=== PATIENT | male | born 1965 | race Hispanic/Latino ===

== ENCOUNTER 2019-12-13 09:29 | Inpatient (IN) | payer SELFPAY ==
[~2019-12-13] VITALS: Ht 162.6 cm; Wt 75.3 kg
[2019-12-13] VITALS (10 sets, daily range): BP systolic 133–155; BP diastolic 94–108
[2019-12-13] MEDS ORDERED: ASPIRIN 81 MG CHEW TAB PO ONE ×2 (09:45→12:00)
[2019-12-13 09:58] LABS: BASOPHILS # (AUTO) 0.1 (0.0-0.1); BASOPHILS % 0.4 % (0.0-1.0); EOSINOPHILS # (AUTO) 0.1 (0.0-0.4); EOSINOPHILS % 0.5 % (0.0-6.0); HEMATOCRIT 46.2 % (38.2-49.6); LYMPHOCYTES # (AUTO) 2.7 (1.0-3.2); LYMPHOCYTES % 21.9 % (18.0-39.1); MEAN CORPUSCULAR HEMOGLOBIN 27.4 pg (28-32); MEAN CORPUSCULAR HGB CONC 32.5 g/dL (31-35); MEAN CORPUSCULAR VOLUME 84.5 fL (81-99); MONOCYTES # (AUTO) 1.4 (0.2-0.8); MONOCYTES % 10.9 % (4.4-11.3); NEUTROPHILS # (AUTO) 8.1 (2.1-6.9); NEUTROPHILS % 64.9 % (38.7-80.0); PLATELET COUNT 511 x10e3/uL (140-360); RED BLOOD COUNT 5.47 x10e6/uL (4.3-5.7); RED CELL DISTRIBUTION WIDTH 13.3 % (11.7-14.4)
[2019-12-13 10:15] LABS: INR 0.95; PROTHROMBIN TIME 13.2 seconds (11.9-14.5)
[2019-12-13 10:31] LABS: ALANINE AMINOTRANSFERASE 75 IU/L (0-55); ALBUMIN 3.3 g/dL (3.5-5.0); ALBUMIN/GLOBULIN RATIO 0.6 (0.8-2.0); ALKALINE PHOSPHATASE 107 IU/L (40-150); ANION GAP 15.2 mmol/L (8-16); BLOOD UREA NITROGEN 10 mg/dL (7-26); BUN/CREATININE RATIO 13 (6-25); CALCIUM 9.4 mg/dL (8.4-10.2); CARBON DIOXIDE 24 mmol/L (22-29); CHLORIDE 105 mmol/L (98-107); CREATINE KINASE 43 IU/L (30-200); EST GLOMERULAR FILTRATION RATE > 60 ML/MIN (60-); GLUCOSE 102 mg/dL (74-118); POTASSIUM 4.2 mmol/L (3.5-5.1); SODIUM 140 mmol/L (136-145)
[2019-12-13] MEDS ORDERED: SODIUM CHLORIDE 0.9% 1000ML 1,000 ML IV STA (11:25)
[2019-12-13] MEDS ORDERED: ENOXAPARIN INJ 80 MG/0.8 ML SYR SC STA (11:35)
--- NOTE | 2019-12-13 11:38 | Diagnostic Imaging Report ---
EXAM: CT Chest WITH contrast- Pulmonary Embolism Protocol INDICATION: Shortness of breath, chest pain COMPARISON: None TECHNIQUE: Chest was scanned utilizing a multidetector helical scanner from the lung apex through the level of the diaphragm after administration of IV contrast. Thin section reconstructions were obtained with special concentration on the pulmonary arteries. Coronal and sagittal reformations were obtained. Pulmonary embolism protocol was performed. IV CONTRAST: 100 cc of Isovue 370 RADIATION DOSE: Total DLP: 410 mGy*cm Dose modulation, iterative reconstruction, and/or weight based adjustment of the mA/kV was utilized to reduce the radiation dose to as low as reasonably achievable. COMPLICATIONS: None FINDINGS: LINES/ TUBES: None. PULMONARY ARTERIES: Acute bilateral lobar pulmonary emboli involving lobar and segmental branches of all lobes of both lungs with partial extension into the left main pulmonary artery. The main pulmonary artery measures up to 2.6 cm in diameter. No right heart strain. LUNGS AND AIRWAYS: The central airways are patent. Bilateral multifocal upper lung and peripherally predominant consolidative opacities. Bibasilar dependent subsegmental atelectasis. PLEURA: The pleural spaces are clear. HEART AND MEDIASTINUM: The thyroid gland is normal. No supraclavicular or axillary lymphadenopathy. Prominent mediastinal lymph nodes do not meet size criteria for lymphadenopathy. The heart is not enlarged. No pericardial effusion. UPPER ABDOMEN: Diffuse hepatic steatosis. No acute findings in the upper abdomen. BONES: No acute osseous injury. No suspicious lytic or blastic lesions. SOFT TISSUES: Unremarkable. IMPRESSION: Acute bilateral lobar pulmonary emboli involving lobar and segmental branches of all lobes of both lungs with partial extension into the left main pulmonary artery. No right heart strain. Bilateral multifocal upper lung and peripherally predominant consolidative opacities can be seen in the setting of multifocal pneumonia (including viral etiologies) or alternatively pulmonary infarcts. Diffuse hepatic steatosis. The above findings were discussed with Dr. Bernal on 12/13/2019 11:20 AM, who responded indicating that the communication was understood. Signed by: Bhargav Nelson MD on 12/13/2019 11:34 AM
[2019-12-13] MEDS ORDERED: CEFTRIAXONE SOD 1 GM/NS 50 ML 50 ML IV ONE (11:45)
--- NOTE | 2019-12-13 12:09 | Emergency Department Note ---
History of Present Illnes History of Present Illness Chief Complaint: COVID PUI History of Present Illness This is a 54 year old male hief Complaint Comment POSITIVE FOR COVID. PT WITH SOB AND THINKS HE MAY HAVE COVID. ALSO CHEST PAIN NON RADIATING. ONSET FRIDAY AND GETTING WORSE. EYES RED. PT AAAOX4. AMBULATORY . Historian: Patient Arrival Mode: Car Onset (how long ago): day(s) (1) Location: chest Quality: dull Radiation: Denies non-radiation, Denies back, Denies neck, Denies extremity, Denies abdomen, Denies periumbilical, Denies flank, Denies proximal, Denies distal, Denies other Severity: moderate Onset quality: gradual Duration (how long): day(s) (1) Timing of current episode: constant Progression: unchanged Chronicity: new Context: Denies recent illness, Denies recent surgery, Denies recent immobilization, Denies recent travel, Denies trauma/injury, Denies new medications, Denies hx of DVT/PE, Denies non-compliance w/ medications, Denies other Relieving factors: none Exacerbating factors: none Associated symptoms: Denies denies other symptoms, Denies confusion, Denies chest pain, Denies cough, Denies diaphoresis, Denies fever/chills, Denies headaches, Denies loss of appetite, Denies malaise, Denies nausea/vomiting, Denies rash, Denies seizure, Denies shortness of breath, Denies syncope, Denies weakness, Denies other Treatments prior to arrival: none Past Medical/Family History Physician Review I have reviewed the patient's past medical and family history. Any updates have been documented here. Past Medical History Recent Fever: No Clinical Suspicion of Infectio: No New/Unexplained Change in Ment: No Past Medical History: None Past Surgical History: None Social History Smoking Cessation: Never Smoker Counseling Performed: No Alcohol Use: None Any Illegal Drug Use: No Physically hurt or threatened: No Other Any Pre-Existing Lines (PICC,: No Review of Systems Review of Systems Constitutional: Reports no symptoms EENTM: Reports no symptoms Cardiovascular: Reports as per HPI Respiratory: Reports as per HPI Gastrointestinal: Reports no symptoms Genitourinary: Reports no symptoms Musculoskeletal: Reports no symptoms Integumentary: Reports no symptoms Neurological: Reports no symptoms Psychological: Reports no symptoms Endocrine: Reports no symptoms Hematological/Lymphatic: Reports no symptoms Physical Exam Related Data Allergies: Coded Allergies: No Known Allergies (Unverified , 12/13/19) Triage Vital Signs Vital Signs Date Time Temp Pulse Resp B/P (MAP) Pulse Ox O2 Delivery O2 Flow Rate FiO2 12/13/19 09:39 98.7 100 20 167/113 99 Room Air Vital signs reviewed: Yes Physical Exam CONSTITUTIONAL Constitutional: Present well-developed, Present well-nourished HENT HENT: Present normocephalic, Present atraumatic, Present oropharynx clear/moist, Present nose normal HENT L/R: Present left ext ear normal, Present right ext ear normal EYES Eyes: Reports PERRL, Reports conjunctivae normal NECK Neck: Present ROM normal PULMONARY Pulmonary: Present effort normal, Present rhonchi CARDIOVASCULAR Cardiovascular: Present regular rhythm, Present heart sounds normal, Present capillary refill normal, Present normal rate GASTROINTESTINAL Abdominal: Present soft, Present nontender, Present bowel sounds normal GENITOURINARY Genitourinary: Present exam deferred SKIN Skin: Present warm, Present dry MUSCULOSKELETAL Musculoskeletal: Present ROM normal NEUROLOGICAL Neurological: Present alert, Present oriented x 3, Present no gross motor or sensory deficits PSYCHOLOGICAL Psychological: Present mood/affect normal, Present judgement normal Results Laboratory Result Diagram: 12/13/19 0950 12/13/19 0950 Laboratory Laboratory Tests Test 12/13/19 10:15 12/13/19 09:50 White Blood Count 12.46 x10e3/uL (4.8-10.8) Red Blood Count 5.47 x10e6/uL (4.3-5.7) Hemoglobin 15.0 g/dL (14.0-18.0) Hematocrit 46.2 % (38.2-49.6) Mean Corpuscular Volume 84.5 fL (81-99) Mean Corpuscular Hemoglobin 27.4 pg (28-32) Mean Corpuscular Hemoglobin Concent 32.5 g/dL (31-35) Red Cell Distribution Width 13.3 % (11.7-14.4) Platelet Count 511 x10e3/uL (140-360) Neutrophils (%) (Auto) 64.9 % (38.7-80.0) Lymphocytes (%) (Auto) 21.9 % (18.0-39.1) Monocytes (%) (Auto) 10.9 % (4.4-11.3) Eosinophils (%) (Auto) 0.5 % (0.0-6.0) Basophils (%) (Auto) 0.4 % (0.0-1.0) Neutrophils # (Auto) 8.1 (2.1-6.9) Lymphocytes # (Auto) 2.7 (1.0-3.2) Monocytes # (Auto) 1.4 (0.2-0.8) Eosinophils # (Auto) 0.1 (0.0-0.4) Basophils # (Auto) 0.1 (0.0-0.1) Absolute Immature Granulocyte (auto 0.17 x10e3/uL (0-0.1) Prothrombin Time 13.2 seconds (11.9-14.5) Prothromb Time International Ratio 0.95 Sodium Level 140 mmol/L (136-145) Potassium Level 4.2 mmol/L (3.5-5.1) Chloride Level 105 mmol/L (98-107) Carbon Dioxide Level 24 mmol/L (22-29) Anion Gap 15.2 mmol/L (8-16) Blood Urea Nitrogen 10 mg/dL (7-26) Creatinine 0.80 mg/dL (0.72-1.25) Estimat Glomerular Filtration Rate > 60 ML/MIN (60-) BUN/Creatinine Ratio 13 (6-25) Glucose Level 102 mg/dL (74-118) Calcium Level 9.4 mg/dL (8.4-10.2) Total Bilirubin 0.5 mg/dL (0.2-1.2) Aspartate Amino Transf (AST/SGOT) 25 IU/L (5-34) Alanine Aminotransferase (ALT/SGPT) 75 IU/L (0-55) Alkaline Phosphatase 107 IU/L (40-150) Creatine Kinase 43 IU/L (30-200) Creatine Kinase MB 0.50 ng/mL (0-5.0) Troponin I < 0.001 ng/mL (0-0.300) Total Protein 8.8 g/dL (6.5-8.1) Albumin 3.3 g/dL (3.5-5.0) Globulin 5.5 g/dL (2.3-3.5) Albumin/Globulin Ratio 0.6 (0.8-2.0) Imaging Imaging results reviewed: Yes Procedures 12 Lead ECG Interpretation ECG Interpretation : ECG: ECG 1 Product Management Analyst: Interpreted by ED physician Date: Dec 13, 2019 Time: 09:35 Rhythm: sinus rhythm Rate: normal BPM: 93 QRS axis: left ST segments normal: Yes T waves normal: Yes Critical Care Time Total Critical Care Time (min): 45 Critical care time exclusive o: separately billable procedures Critcal care necessary due to: other (PE) Critcal care time spent by me: develop tx plan w patient/surrogate, discussion w consultants, discussion w primary provider, evaluation patient response to tx, examination of patient, order/perform tx or interventions, order/review labo ratory studies, order/review radiographic studies, pulse oximetry, re-evaluation of patient condition Assessment & Plan Medical Decision Making MDM CAD PE Reassessment Reassessment BETTER Assessment & Plan Final Impression: (1) Pulmonary embolism (2) Chest pain Depart Disposition: ADMITTED Last Vital Signs Date Time Temp Pulse Resp B/P (MAP) Pulse Ox O2 Delivery O2 Flow Rate FiO2 12/13/19 10:03 89 21 152/98 97 Room Air 12/13/19 09:39 98.7 Medications in the ED Aspirin 81 mg PRN ONCE PO Last administered on 12/13/19at 11:57; Admin Dose 81 MG; Start 12/13/19 at 09:45; Stop 12/13/19 at 11:59; Status DC Sodium Chloride 1,000 ml @ 0 mls/hr Q0M STAT IV Last administered on 12/13/19at 11:57; Admin Dose 999 MLS/HR; Start 12/13/19 at 11:25; Stop 12/13/19 at 11:27; Status DC Enoxaparin Sodium 80 mg NOW STAT SC Last administered on 12/13/19at 11:57; Admin Dose 80 MG; Start 12/13/19 at 11:35; Stop 12/13/19 at 11:40; Status DC Enoxaparin Sodium 80 mg Q12HR SC ; Start 12/13/19 at 21:00; Stop 12/20/19 at 20:59 Ceftriaxone Sodium 50 ml @ 100 mls/hr ONCE ONCE IV Last administered on at 11:57; Admin Dose 100 MLS/HR; Start 12/13/19 at 11:45; Stop 12/13/19 at 12:14 Aspirin 81 mg PRN ONCE PO ; Start 12/13/19 at 12:00; Stop 12/13/19 at 12:01; Status UNV Ceftriaxone Sodium 50 ml @ 100 mls/hr Q24H IV ; Start 12/13/19 at 12:00; Stop 12/20/19 at 11:59; Status KALPESH MAO MD Dec 13, 2019 12:09
[2019-12-13] MEDS ORDERED: IOPAMIDOL 370 MG/ML 200 ML INFUS..BTL INJ ONE (12:47)
[2019-12-13] MEDS ORDERED: SODIUM CHLORIDE 0.9% 50ML 50 ML ONE (12:47)
[2019-12-13] MEDS ORDERED: ZOLPIDEM TARTRATE 5 MG TAB PO PRN (16:15)
[2019-12-13] MEDS: ASCORBIC ACID 500 MG TAB PO SCH (16:20)
[2019-12-13] MEDS: AZITHROMYCIN 500MG/NS 250 ML 250 ML IV SCH (16:44)
--- NOTE | 2019-12-13 18:14 | Consultation ---
DATE OF CONSULTATION: Pulmonary Critical Care consultation CHIEF COMPLAINT: Pain with inspiration for 2 days. HISTORY OF PRESENT ILLNESS: The patient is a 54-year-old man. He reports pain with inspiration for 2 days. He does not report any fever or cough. He came to the emergency department and was found to have pulmonary emboli. The patient still denies any dyspnea. He says his only symptom is pain. He said his was tested for COVID, but he is unsure of the result. He was also previously tested for COVID and was negative. PAST SURGICAL HISTORY: The patient denies any surgeries in the past. PAST MEDICAL HISTORY: 1. No prior history of pulmonary emboli. 2. No prior history of asthma. 3. No prior history of heart problems. SOCIAL HISTORY: The patient has never been a smoker. He is not a drinker. He denies any long recent trips. FAMILY HISTORY: Family is noncontributory. REVIEW OF SYSTEMS: The patient is afebrile. He has no headache. He is not having any neck pain. He does note some pain with inspiration. He has no cough. He has no abdominal pain. He has no nausea or vomiting. He has no leg edema. PHYSICAL EXAMINATION: VITAL SIGNS: The blood pressure is 156/78. The pulse is 89. Respiratory rate is 23 and the saturation is 97%. HEENT: Shows no facial swelling or erythema. LYMPHATIC: Shows no submandibular, cervical, or supraclavicular adenopathy. CARDIAC: Reveals regular rate and rhythm with normal S1 and S2. LUNGS: Auscultation of lungs reveals rhonchorous breath sounds bilaterally. There is no wheezing. ABDOMEN: Soft and nontender. There is no rebound or guarding. EXTREMITIES: Shows no leg edema or calf tenderness. There is no cyanosis or clubbing. SKIN: Shows no rashes. NEUROLOGICAL: Shows no focal abnormalities. LABORATORY DATA: White blood cell count is 12.4, hemoglobin is 15, and the platelet count is 511. The BUN to creatinine ratio is 10 to 0.8, and the other electrolytes are within normal limits. RADIOGRAPHIC DATA: Chest x-ray shows acute bilateral pulmonary emboli involving the lobar and segmental branches. There is also some multifocal peripheral dominant consolidative opacities suggestive of possible pneumonia. IMPRESSION: 1. Pulmonary emboli. 2. Viral pneumonia and COVID-19 infection. PLAN: 1. Continue Lovenox at 1 mg/kg twice daily. 2. The patient does not have any right heart strain on CT. 3. Echocardiogram to evaluate right heart function. 4. Assuming the patient has no right heart strain, he can safely be discharged home on oral Eliquis. He should be on Eliquis 10 mg twice a day for 7 days followed by Eliquis 5 mg a day twice a day for 3 to 6 months. 5. Await COVID test. MD VESTA Ramirez/MODL /[id number]
[2019-12-13 19:33] LABS: CREATINE KINASE MB 0.5 ng/mL (0-5.0)
[2019-12-13] MEDS: ENOXAPARIN INJ 80 MG/0.8 ML SYR SC SCH (20:32)
--- NOTE | 2019-12-13 20:35 | NUR ---
Pt is alert and orientedx4. Pt remain afebrile, on RA saturating at 94-98%. Pt was given nightly dose of lovenox as ordered and made aware of pending transition to different room. Pt is covid-. RR remains WNL. Breath sounds are diminished bilaterally. Pt denies any needs at this time. Attempted to give report x1 for room 289. Will call again.
--- NOTE | 2019-12-13 21:25 | NUR ---
Patient arrived to unit from ICU via wheelchair, respirations even and unlabored on room air, SR on telemetry, no s/s of distress at this time. Bed locked and in lowest position, side rails upx3, call light placed within reach. Patient instructed to call for assistance if needed, verbalized understanding. All safety measures in place.
[2019-12-14] VITALS (7 sets, daily range): BP systolic 130–158; BP diastolic 85–103
--- NOTE | 2019-12-14 | History and Physical ---
The patient was seen early this afternoon approximately 1:30 p.m. in the ICU, then transferred to the COVID Unit. HISTORY OF PRESENT ILLNESS: This is a 54-year-old male, who comes into the ED with complaints of chest pain ongoing for the last several days. The patient reports he noticed it two days ago with radiation to the left shoulder and arm. The patient denies any history of cardiac disease. On arrival to the emergency room, the patient had a stat CT of the chest and found to have a pulmonary embolism, likely the etiology of his chest pain. He reports that his does have coronavirus at home. He denies any cough, congestion or any fever. CT imaging consistent with multifocal ground-glass opacity concerning for underlying coronavirus. The patient was seen and evaluated at bedside on the medical floor, he is currently doing well with no other issues at this time. REVIEW OF SYSTEMS: Pertinent positive chest pain. The rest of 14-point review of systems are reviewed with the patient and negative. ALLERGIES: NO KNOWN DRUG ALLERGIES. HOME MEDICATIONS: None. PAST MEDICAL HISTORY: Reports none. PAST SURGICAL HISTORY: Reports none. FAMILY HISTORY: Hypertension and diabetes. SOCIAL HISTORY: No drugs, no alcohol, does not smoke. Good social support. PHYSICAL EXAMINATION: VITAL SIGNS: Temperature is 99.5, pulse 95, respiratory rate 22, blood pressure is 146/101, pulse ox 97% on room air. GENERAL: In no acute distress, alert and oriented x3. Cooperative on examination. HEENT: Head is normocephalic and atraumatic. Eyes; pupils are equal, round, and reactive to light bilaterally. Extraocular movements are intact bilaterally. NECK: Supple. Good range of motion throughout. Throat, no evidence of any erythema or exudates in the posterior pharynx. Has poor dentition. PULMONARY: Clear to auscultation bilaterally. No wheezing, rales, or rhonchi. No crackles appreciated. CARDIOVASCULAR: Positive S1, S2. No murmurs, rubs, or gallops appreciated. ABDOMEN: Soft, nondistended, nontender to palpation. Bowel sounds present. MUSCULOSKELETAL: Strength is 5/5 throughout. No evidence of any muscle deficits on examination. No weakness appreciated. NEUROLOGICAL: Cranial nerves II through XII grossly intact. No evidence of any neurological deficits on exam. SKIN: Intact. Warm to touch. Good cap refill. PSYCHIATRIC: Normal affect and mood. EXTREMITIES: No edema. Good range of motion throughout. LABORATORY FINDINGS: White count 12.4, hemoglobin 15, hematocrit 46, platelets of 511,000. Chemistry; sodium 140, potassium 4.2, chloride 105, bicarb 24, anion gap of 15, BUN 10, creatinine 0.8, glucose 102, calcium 9.4, total bilirubin 0.5, AST 25, ALT 75, alkaline phosphatase 107. Troponins were negative. Albumin 3.3. Serology, coronavirus pending. Microbiology, blood cultures are pending. IMAGING STUDIES: CT chest PE protocol shows acute bilateral lobar pulmonary embolism involving lobar and segmental branches of all lobes of both lungs with partial extension to the left main pulmonary artery. No right heart strain. Bilateral multifocal upper lung peripheral predominantly consolidative opacities can be seen in the setting of multifocal pneumonia or alternatively pulmonary infarcts. Diffuse hepatic steatosis. IMPRESSION: 1. Acute pulmonary embolism. 2. Concerns for COVID-19 pneumonia with viral pneumonia. PLAN: At this time, the patient is on full-dose anticoagulation with Lovenox 1 mg/kg b.i.d. He was initially sent to the ICU. I am not sure why, but he is now transferred to the COVID Unit. We will continue with anticoagulation, get Hematology consultation. Pulmonary has been consulted. 2D echo has been ordered. He will likely be converted to oral anticoagulation. I did consult with ID to evaluate for possible COVID due to the imaging studies. Await for pelvic testing. Restart home medications. Encourage ambulation. Full-dose anticoagulation for underlying PE and DVT prophylaxis. We will get lower extremity venous Doppler as well. MD ERICA aDo/MODL /[id number]
[2019-12-14 06:10] LABS: BASOPHILS # (AUTO) 0.1 (0.0-0.1); BASOPHILS % 0.6 % (0.0-1.0); EOSINOPHILS # (AUTO) 0.1 (0.0-0.4); EOSINOPHILS % 1.3 % (0.0-6.0); HEMATOCRIT 42.2 % (38.2-49.6); LYMPHOCYTES # (AUTO) 2.7 (1.0-3.2); LYMPHOCYTES % 26.5 % (18.0-39.1); MEAN CORPUSCULAR HEMOGLOBIN 29.1 pg (28-32); MEAN CORPUSCULAR HGB CONC 33.2 g/dL (31-35); MEAN CORPUSCULAR VOLUME 87.7 fL (81-99); MONOCYTES # (AUTO) 1.2 (0.2-0.8); MONOCYTES % 11.9 % (4.4-11.3); NEUTROPHILS # (AUTO) 5.8 (2.1-6.9); NEUTROPHILS % 58.3 % (38.7-80.0); PLATELET COUNT 432 x10e3/uL (140-360); RED BLOOD COUNT 4.81 x10e6/uL (4.3-5.7); RED CELL DISTRIBUTION WIDTH 14.3 % (11.7-14.4)
[2019-12-14 06:36] LABS: ALANINE AMINOTRANSFERASE 60 IU/L (0-55); ALBUMIN/GLOBULIN RATIO 0.6 (0.8-2.0); ALKALINE PHOSPHATASE 100 IU/L (40-150); ANION GAP 15.3 mmol/L (8-16); BLOOD UREA NITROGEN 10 mg/dL (7-26); BUN/CREATININE RATIO 12 (6-25); CARBON DIOXIDE 24 mmol/L (22-29); CHLORIDE 104 mmol/L (98-107); CREATININE, SERUM 0.84 mg/dL (0.72-1.25); EST GLOMERULAR FILTRATION RATE > 60 ML/MIN (60-); GLUCOSE 123 mg/dL (74-118); POTASSIUM 4.3 mmol/L (3.5-5.1); SODIUM 139 mmol/L (136-145)
--- NOTE | 2019-12-14 06:46 | NUR ---
Routine consult called to Dr. Santos's office.
[2019-12-14 07:10] LABS: CREATINE KINASE MB 0.3 ng/mL (0-5.0)
--- NOTE | 2019-12-14 08:16 | NUR ---
HEMATOLOGY/ONCOLOGY CONSULTATION REPORT REASON FOR CONSULTATION: Pulmonary Embolism HISTORY OF PRESENT ILLNESS: Mr. Pang is a 54-year-old male with past medical history of hypertension who initially presented to the emergency department with chest pain over the last several days. Patient had stat CT chest with PE protocol performed which revealed acute bilateral lobar pulmonary emboli involving lobar and segmental branches along with bilateral opa cities which could represent multifocal pneumonia. ension into the left main pulmonary artery. COVID19 PCR was not detected. He has been started on on Lovenox 1mg/kg q12h, Vitamin C, and IV antibiotics. Patient denies history of hematologic disorders or cancers. He denies history of previous blood clots or use of blood thinners. He denies recent travel, immobility, smoking, or use of hormone replacement therapy. Hematology/Oncology has been consulted to assist with management. Presently, patient is resting comfortably. He appears to be in NAD. He denies chest pain or dyspnea at this time. He denies swelling to BLE. ALLERGIES: NKDA PAST MEDICAL HISTORY: Hypertension PAST SURGICAL HISTORY: None FAMILY HISTORY: Hypertension and diabetes SOCIAL HISTORY: Denies history of tobacco use, alcohol use, or illicit drug use REVIEW OF SYSTEMS: 14 point ROS negative unless otherwise stated in the HPI. PHYSICAL EXAMINATION: VITAL SIGNS: Reviewed per EMR GENERAL: NAD HEENT: NC, AT; EOMI NECK: Supple PULMONARY: Decreased breath sounds bilaterally CARDIOVASCULAR: Regular rate, regular rhythm PULMONARY: Decreased breath sounds bilaterally ABDOMEN: Soft, NTND, bowel sounds x 4 MUSCULOSKELETAL: Moves all EXTREMITIES: No cyanosis, no edema NEUROLOGICAL: Awake, alert PSYCHIATRIC: Cooperative LABORATORY DATA: 12/14/2019 WBC: 10.02 Hgb: 14.0 Hct: 42.2 Plt: 432 Monocytes: 11.9% PT: 13.2 INR: 0.95 BUN: 10 Creatinine: 0.84 RADIOLOGY DATA: CT Chest with PE protocol: Acute bilateral lobar pulmonary emboli involving lobar and segmental branches of all lobes of both lungs with partial extension into the left main pulmonary artery. No right heart strain. Bilateral multifocal upper lung and peripherally predominant consolidative opacities can be seen in the setting of multifocal pneumonia (including viral etiologies) or alternatively pulmonary infarcts. Diffuse hepatic steatosis. ASSESSMENT/PLAN: Mr. Pang is a 54-year-old male with past medical history who initially presented to the emergency department with chest pain over the last several days. Patient had stat CT chest with PE protocol performed which revealed acute bilateral lobar pulmonary emboli involving lobar and segmental br anches along with bilateral opacities which could represent multifocal pneumonia. ension into the left main pulmonary artery. COVID19 PCR was not detected. He has been started on on Lovenox 1mg/kg q12h, Vitamin C, and IV antibiotics. Patient denies history of hematologic disorders or cancers. He denies history of previous blood clots or use of blood thinners. He denies recent travel, immobility, smoking, or use of hormone replacement therapy. Hematology/Oncology has been consulted to assist with management. 1. Pulmonary embolism: Uncertain etiology. COVID19 negative however will await ID recommendations as patient appears to have bilateral ground glass opacities concerning for coronavirus. Continue on Lovenox 1mg/kg q12h with plans to switch to oral anticoagulation, likely Eliquis, at the time of discharge. Recommend continuing on Lovenox for at least 24-48 hours due to extensive clot. Will await BLE venous doppler US and echocardiogram, CT chest with PE protocol revealed no right heart strain. Will obtain tumor markers as well and follow up results. If all workup negative, patient may benefit from thrombophilia panel which can be done in the outpatient setting. Monitor for now. 2. Multifocal PNA: COVID19 vs other etiology? COVID19 PCR negative. Leukocytosis resolved. Currently afebrile. Patient on IV antibiotics and Vit C. ID and Pulmonary consulted. 3. DVT proph: As per #1. Above plan discussed with Dr. Blaine Santos. Thank you for the consult. I will be available. Please call with questions.
[2019-12-14] MEDS: ENOXAPARIN INJ 80 MG/0.8 ML SYR SC SCH ×2 (09:18→21:21)
[2019-12-14] MEDS: ASCORBIC ACID 500 MG TAB PO SCH ×2 (09:18→17:16)
[2019-12-14] MEDS: CEFTRIAXONE SOD 1 GM/NS 50 ML 50 ML IV SCH (13:45)
--- NOTE | 2019-12-14 15:04 | NUR ---
GAVE PACKET OF INFORMATION WITH COMMUNITY [employer] FOR ASSISTANCE WITH LOW TO NO INCOME TO PATIENT. RESOURCES THAT PATIENT MAY BE ABLE TO FOLLOW UP UPON DISCHARGE. PT EDUCATED ON EACH RESOURCE AND UNDERSTANDING HOW TO FOLLOW UP TO SEE IF QUALIFIED FOR EACH RESOURCE.
--- NOTE | 2019-12-14 17:15 | NUR ---
his is a 54-year-old male, who comes into the ED with complaints of chest pain ongoing for the last several days. The patient reports he noticed it two days ago with radiation to the left shoulder and arm. The patient denies any history of cardiac disease. On arrival to the emergency room, the patient had a stat CT of the chest and found to have a pulmonary embolism, likely the etiology of his chest pain. He reports that his does have coronavirus at home. He denies any cough, congestion or any fever. CT imaging consistent with multifocal ground-glass opacity concerning for underlying coronavirus. The patient was seen and evaluated at bedside on the medical floor, he is currently doing well with no other issues at this time. REVIEW OF SYSTEMS: Pertinent positive chest pain. [id number]
[2019-12-14] MEDS: AZITHROMYCIN 500MG/NS 250 ML 250 ML IV SCH (17:16)
--- NOTE | 2019-12-14 19:00 | NUR ---
RECEIVED PATIENT IN BEDSIDE SHIFT REPORT. PATIENT RESTING IN BED AT THIS TIME. NO PAIN REPORTED. NO S&S OF DISTRESS NOTED. TELE MONITOR AND CONTINUOUS PULSE OX MONITOR ON. BED LOCKED IN LOWEST POSITION, SIDE RAILS UXP2, CALL LIGHT IN REACH.
--- NOTE | 2019-12-14 20:35 | Progress Note ---
DATE: SUBJECTIVE: Mr. Pang is doing well. There are no new complaints. PHYSICAL EXAMINATION: GENERAL: He is currently alert, oriented. VITAL SIGNS: Stable, afebrile. HEENT: He is not icteric. NECK: Supple. CHEST: Clear. COR: S1 and S2. ABDOMEN: Soft. ASSESSMENT AND PLAN: Acute pulmonary embolism, continue as ordered. We will follow . MD XOCHITL Bowen/MODL /[id number]
--- NOTE | 2019-12-14 20:35 | Progress Note ---
DATE: SUBJECTIVE: Mr. Pang is a 54-year-old male, who comes in to the emergency room with chest pain and not feeling well for a few days. The patient taken to the emergency room. He had CT scan, consistent with multifocal opacity. The patient was also diagnosed with pulmonary embolism. The patient is being admitted with pulmonary embolism. I was asked to see him. OBJECTIVE: GENERAL: When I saw him, he is currently alert and oriented. Does not present in acute distress. VITAL SIGNS: Stable, afebrile. I did see him yesterday. He was in the intensive care, but today he is doing better. IMPRESSION: Pulmonary embolism, maybe had history of COVID-19 a few weeks ago. Nothing seem to be done except treating the pulmonary embolism. Discussed with Medical Team. MD XOCHITL Bowen/OSORIO /[id number]
[2019-12-14] MEDS ORDERED: ACETAMINOPHEN 325 MG TAB PO PRN (21:00)
[2019-12-15] VITALS: BP 144/91
--- NOTE | 2019-12-15 02:07 | Progress Note ---
DATE: 12/14/2019 Medicine Progress Note The patient was seen and evaluated at 10:45 this morning with the nursing staff. SUBJECTIVE: The patient reports feeling a little better today with no complaints. Hematology was consulted. Several serologies were ordered. The patient is not short of breath on examination. PHYSICAL EXAMINATION: VITAL SIGNS: Temperature is a 100. T-max was a 100. During my evaluation, temperature was 98.7, pulse 89, respirations 18, blood pressure 136/101, pulse ox 97% on room air. GENERAL: Not in acute distress. Alert and oriented x3. Cooperative on examination. HEENT: Head; normocephalic, atraumatic. Eyes; pupils are equal, round, and reactive to light bilaterally. Extraocular movements intact bilaterally. Throat; no evidence of erythema or exudates in the posterior pharynx. Has poor dentition. NECK: Supple. Good range of motion. PULMONARY: Clear to auscultation bilaterally. No wheezing, no rales, no rhonchi, no crackles appreciated. CARDIOVASCULAR: Positive S1 and S2. No murmurs, rubs, or gallops appreciated. ABDOMEN: Soft, nondistended, and nontender to palpation. Bowel sounds present. MUSCULOSKELETAL: Strength is 5/5 throughout. No evidence of any muscle deficits on examination. No weakness appreciated. NEUROLOGIC: Cranial nerve II through XII grossly intact. No evidence of any neurological deficits on exam. SKIN: Intact. Warm to touch. Good cap refill. PSYCHIATRIC: Normal affect and mood. EXTREMITIES: No edema. Good range of motion throughout. LABORATORY DATA: Show white count 7, hemoglobin 14, hematocrit 42, platelets of 432. Coagulation; PT 13, INR 0.95. Chemistry; sodium 139, potassium 4.3, chloride 104, bicarb 24, anion gap of 15, BUN is 10, creatinine 0.84, glucose is 123. Troponins were all negative. Several tumor markers were ordered. SEROLOGIES: Coronavirus not detected. MICROBIOLOGY: Blood cultures, no growth to-date. IMAGING STUDIES: Lower extremity venous Doppler preliminary shows negative for DVT. IMPRESSION: 1. Acute pulmonary embolism. 2. Concerns for prior exposure of coronavirus disease-2019 pneumonia with viral pneumonia. PLAN: At this time, his coronavirus was found to be negative. The patient likely was exposed in the past. He is currently does not have coronavirus. Continue with full-dose anticoagulation. Pulmonary and ID is following. Hematology was consulted. Several tumor markers serologies were ordered. The patient will likely be converted to oral Eliquis and then plan to be discharged home soon. Venous Doppler of the lower extremities, found to be negative. Plan to discharge in the next 1 to 2 days as the patient is doing well. Cardiac enzymes were negative. MD ERICA Dao/DILANL /[id number]
[2019-12-15 04:00] VITALS: BP 125/90
[2019-12-15 07:37] VITALS: BP 127/94
--- NOTE | 2019-12-15 08:03 | NUR ---
HEMATOLOGY/ONCOLOGY PROGRESS REPORT REASON FOR CONSULTATION: Pulmonary Embolism HISTORY OF PRESENT ILLNESS: Patient is resting comfortably, no chest pain or dyspnea. REVIEW OF SYSTEMS: 14 point ROS negative unless otherwise stated in the HPI. PHYSICAL EXAMINATION: VITAL SIGNS: Reviewed per EMR GENERAL: NAD HEENT: NC, AT; EOMI NECK: Supple PULMONARY: Decreased breath sounds bilaterally CARDIOVASCULAR: Regular rate, regular rhythm PULMONARY: Decreased breath sounds bilaterally ABDOMEN: Soft, NTND, bowel sounds x 4 MUSCULOSKELETAL: Moves all EXTREMITIES: No cyanosis, no edema NEUROLOGICAL: Awake, alert PSYCHIATRIC: Cooperative LABORATORY DATA: 12/14/2019 WBC: 10.02 Hgb: 14.0 Hct: 42.2 Plt: 432 Monocytes: 11.9% PT: 13.2 INR: 0.95 BUN: 10 Creatinine: 0.84 AFP: 3.5 CEA: 1.8 CA 19-9: Pending PSA: 0.9 RADIOLOGY DATA: CT Chest with PE protocol: Acute bilateral lobar pulmonary emboli involving lobar and segmental branches of all lobes of both lungs with partial extension into the left main pulmonary artery. No right heart strain. Bilateral multifocal upper lung and peripherally predominant consolidative opacities can be seen in the setting of multifocal pneumonia (including viral etiologies) or alternatively pulmonary infarcts. Diffuse hepatic steatosis. ASSESSMENT/PLAN: Mr. Pang is a 54-year-old male with past medical history who initially presented to the emergency department with chest pain over the last several days. Patient had stat CT chest with PE protocol performed which revealed acute bilateral lobar pulmonary emboli involving lobar and segmental br anches along with bilateral opacities which could represent multifocal pneumonia. ension into the left main pulmonary artery. COVID19 PCR was not detected. He has been started on on Lovenox 1mg/kg q12h, Vitamin C, and IV antibiotics. Patient denies history of hematologic disorders or cancers. He denies history of previous blood clots or use of blood thinners. He denies recent travel, immobility, smoking, or use of hormone replacement therapy. Hematology/Oncology has been consulted to assist with management. 1. Pulmonary embolism: Uncertain etiology. COVID19 negative however patient may have had coronavirus a few weeks ago per ID. Continue on Lovenox 1mg/kg q12h with plans to switch to oral anticoagulation, Eliquis 10mg BID x 7 days then maintenance dose of Eliquis 5mg BID, at the time of discharge. BLE venous doppler US prelim negative for DVT, await final report. Echocardiogram with LVEF 50-55%. CT chest with PE protocol revealed no right heart strain. Tumor markers so far normal. If all workup negative, patient may benefit from thrombophilia panel which can be done in the outpatient setting. Monitor for now. 2. Multifocal PNA: COVID19 possible prior exposure per ID. COVID19 PCR negative. Leukocytosis resolved. Currently afebrile. Patient on IV antibiotics a nd Vit C. Monitor for now. 3. Thrombocytosis: Likely reactive. Counts improving. Monitor for now. 4. DVT proph: As per #1. 5. Dispo: Patient clear for discharge from HemOnc standpoint. Above plan discussed with Dr. Blaine Santos. Thank you for the consult. I will be available. Please call with questions.
[2019-12-15] MEDS: ENOXAPARIN INJ 80 MG/0.8 ML SYR SC SCH (08:38)
[2019-12-15] MEDS: ASCORBIC ACID 500 MG TAB PO SCH ×2 (08:38→16:50)
[2019-12-15 11:16] VITALS: BP 127/94
[2019-12-15 11:39] VITALS: BP 135/94
--- NOTE | 2019-12-15 14:10 | NUR ---
Patient's daughter ( Dona ) received the prescription for Eliquis and the 30-day trial card. Advised to get the prescription and come back so I can see the medication. Daughter states that she will milk pickup driver the medication and come back to the hospital.
--- NOTE | 2019-12-15 14:53 | Progress Note ---
DATE: 12/15/2019 I spoke with the patient at bedside with the nurse present throughout the entire conversation. We discussed with the patient about his anticoagulation therapy. I told him that we are going to give him Eliquis 10 mg twice a day for 7 days and then 5 mg twice daily thereafter, and he will get one month supply from us and we will provide him with a free Eliquis card. I discussed with him that it is very important to continue taking this medication despite given one month supply. The patient is to follow up very closely with the truck spotter. In fact, we provided the documentation and information to [facility] in order for him to make an appointment and possibly even get some of these medications for free. I also educated him about seeing the primary care doctor as soon as he gets discharged in the event he runs out after a month and he will need more prescriptions. I discussed with him the importance of continuing this medication for a minimum of 6 to 9 months, but also he will need to go to the truck spotter to determine when this stop date is. He verbalized understanding. I also spoke with the daughter, Dona, phone #[phone] about the importance of these medications. I told her that he will get one month supply from our facility with a free Eliquis card. He may be able to qualify for other resources as well. She understood and verbalized understanding. We also educated her about following up with the PCP, also make an appointment with [facility] and sign up with them, and potentially possibly even getting some of these medications for free. I even told them to even reach out to the pharmaceutical company possibly having a discount or even possibly getting them for free from the pharmaceutical company. On any rate, he will be provided the Eliquis card and the prescription, and I told he will need to go picking crew supervisor the prescription and verify with us that the prescription has been picked up and he can be discharged to home. The patient is currently doing well. He is alert, awake, and oriented. He is stable. His vitals are stable. He has no pain at this time. He does need to see the truck spotter as an outpatient because the etiology of his PE is unknown. I am not sure if it is provoked or not provoked. He may be other causes. His lower extremity venous Doppler was found to be negative for any DVT. The patient verbalized understanding at bedside and when I spoke to Dona, she also verbalized understanding and agrees to plan of care. The patient will likely be discharged home later today. Once again, daughter and the patient verbalized understanding and agrees to plan of care. MD ERICA Dao/OSORIO /[id number]
[2019-12-15 15:25] VITALS: BP 142/97
[2019-12-15] MEDS: CEFTRIAXONE SOD 1 GM/NS 50 ML 50 ML IV SCH (15:33)
--- NOTE | 2019-12-15 16:31 | NUR ---
CALL TO PT'S ROOM TO DISCUSS ASSISTANCE W EL[place] AFTER FREE 1 MO SUPPLY GIVEN. PT STATES HE IS NOT A CITIZEN. CM REVIEWED GOLD CARD CRITERIA. INSTRUCTED PT THE APPLICATION IS INCLUDED IN THE RESOURCE PACKET GIVEN BY THE . STATES HE HAS THE PACKET AND WILL HAVE HIS DTR REVIEW THE MATERIAL. STATES HIS DTR HAD GONE TO THE PHARMACY. CM REITERATED THE IMPORTANCE OF CONTINUING TO TAKE HIS ELIQUIS ONCE HIS 30 DAY SUPPLY RAN OUT. PT VERBALIZED UNDERSTANDING. STATES HE WILL BE SURE TO CONT HIS MEDS. [facility] TOLD HIM HE WILL NEED TO TAKE ELIQUIS FOR 6-9MOS. GAVE COPY OF [facility] [employer] CARD CATIE AGAIN.
[2019-12-15] MEDS: AZITHROMYCIN 500MG/NS 250 ML 250 ML IV SCH (16:55)
--- NOTE | 2019-12-15 17:55 | NUR ---
Education given regarding the importance of taking Eliquis as ordered. Reinforced teaching regarding the importance to take Anticoagulant (Eliquis) prescribed by Dr. Thompson. Reinforced teaching regarding follow-up appointment with health type technician and PCP in 1 week. Patient is educated about about the importance to getting to sign up for resources provided by the case management manager so he can acquire a different anticoagulant after prescription runs out. Verbalized understanding.
[2019-12-15] MEDS ORDERED: APIXABAN 5 MG TABLET PO SCH (18:00)
--- NOTE | 2019-12-15 18:00 | NUR ---
Given eliquis 10 mg, PO x one dose per ordered.
--- NOTE | 2019-12-15 18:08 | NUR ---
PIV to left AC discontinued, catheter tip intact, no bleeding noted. Discharge packet provided with the form for [facility] for healthcare and medication assistance. Transported patient via wheelchair to private vehicle. daughter Dona is present and reinforced teaching given to the patient. Verbalized understanding.
--- NOTE | 2019-12-15 19:39 | Progress Note ---
DATE: SUBJECTIVE: Poly is doing well. There is no new complaint. OBJECTIVE: GENERAL: The patient is alert. VITAL SIGNS: Stable, afebrile. HEENT: He is not icteric. NECK: Supple. CHEST: Clear. IMPRESSION: Pulmonary embolism, the patient is stable from Infectious Disease point of view, being discharged home. COVID-19 old infection, no need for treatment. MD XOCHITL Bowen/MODL /[id number]
--- NOTE | 2019-12-16 05:36 | Discharge Summary ---
FINAL DISCHARGE DIAGNOSES: 1. Acute pulmonary embolism. 2. Coronavirus disease-19 pneumonia exposure in the past, now asymptomatic. 3. Atypical chest pain. CONSULTANTS: ID, Pulmonary, Hematology. PHYSICAL EXAMINATION: VITAL SIGNS: Temperature was 98.3, pulse 99, respiratory rate is 18, blood pressure was 135/94, pulse ox 96% on room air. LABORATORY FINDINGS: White count was 10, hemoglobin 14, hematocrit 42, platelets of 432. Coagulation; PT 13, INR 0.95. Chemistry; sodium 139, potassium 4.3, chloride 104, bicarb 24, anion gap of 15, BUN is 10, creatinine 0.84, glucose 123, calcium is 9, AST is 25, ALT was 60, alkaline phosphatase is 100. Troponins were all negative. Albumin was 3. Alpha-fetoprotein 3.5, CEA antigen 1.8. PSA was 0.9. CA 19-9 antigen pending. Serology; coronavirus was not detected. Microbiology; blood cultures were no growth to date, greater than 48 hours. IMAGING STUDIES: CT of the chest shows acute bilateral lobar pulmonary emboli involving lobar and segmental branches of all lobes of both lungs with partial extension into the left main artery. No right heart strain noted. Bilateral multifocal upper lung and peripherally predominant consolidative opacity can be seen in the setting of multifocal pneumonia. Diffuse hepatic steatosis. HOSPITAL COURSE: This is a 54-year-old male. He came into the ED with complaints of underlying chest pain needing further evaluation and management. CTA of the chest showed extensive bilateral pulmonary embolism on imaging studies, prompting full-dose anticoagulation with Lovenox and was sent to the ICU initially. Of note, Pulmonary, ID, and Hematology were consulted respectively. Pulmonary and ID were consulted as the CTA was consistent with ground-glass opacity, concerning for underlying COVID-19. His COVID-19 was found to be negative. In fact, the patient was asymptomatic, normal white count. He was afebrile, had no cough or congestion. There is no further workup needed by ID. As per Pulmonary, 2D echo was performed, showed no evidence of any right heart strain. Imaging study including CT showed no evidence of any right heart strain. The patient maintained on full-dose anticoagulation with Lovenox 1 mg/kg b.i.d. with much improvement. Of note, the patient was ambulating with no evidence of any shortness of breath. His chest pain was resolved. His cardiac enzymes were negative. An EKG showed normal sinus rhythm. Hematology was consulted. The patient has serology workup performed. There is still some serologies pending in which the patient was advised to follow up with a veneer taping machine offbearer as an outpatient. The current serologies ordered were found to be within normal range. The patient was cleared for discharge by Hematology on Eliquis 10 mg p.o. b.i.d. x7 days, then 5 mg p.o. b.i.d. and he will need this for several months. I had a long discussion with the patient at bedside including his daughter on the phone and I talked with them about the importance of anticoagulation. I have discussed the risks and benefits involved in taking oral anticoagulation especially with taking Eliquis on discharge. I talked to them about the event of any bleeding, it could be rectal bleeding or any sort of bleeding, I have discussed with him to please come to the hospital for further evaluation and management. I did provide the family and the patient a free Eliquis card and a prescription, and which they will bean picker machine operator from [place] and confirm with the nurse that they were able to pick it up for free which will give them one month supply. I advised them to urgently please call [facility] to make an appointment for further management and care and also some resources in terms of cost and also make an appointment with Hematology as well as their PCP. I discussed with them that he may need further workup and as of now, he is doing very well, he has no chest pain, he has no shortness of breath, he is actually breathing well with no issues. The family did bean picker machine operator the prescription and brought it to our hospital and his daughter was able to pick it up. He was provided 10 mg of Eliquis before he left, and then, he will initiate the rest of his medications starting tomorrow morning. This was educated to the daughter by phone including the nursing staff educated the family. At this time, the patient is doing well with no complaints. Risks and benefits were discussed with the patient and the family and they verbalized understanding. The patient was cleared for discharge by all consultants. On the day of discharge, vital signs were stable, labs reviewed and stable. The patient is seen and evaluated and examined thoroughly on the day of discharge, no other complaints. The patient verbalized understanding and agrees to plan of care to follow up as an outpatient with the primary care physician in 1 week, Hematology in 2 weeks' time. He was educated. He was provided information with [facility] as well as other resources in order for him to get medical attention and he verbalized understanding agree of plan of care. I also educated the patient and the family in the event that he has difficulty after one month of getting the Eliquis that please come to the ER for further assistance and we can try to assist them in any manner. MEDICATIONS: See med reconciliation form. DISPOSITION: Home. CONDITION: Stable. DIET: Heart healthy. In the event of any worsening symptoms, patient was advised to come back to the ED for further evaluation. Discharge summary took greater than 35 minutes. MD ERICA Dao/MODL /[id number]
--- OUTSIDE RECORDS SUMMARY | 2019-12-17 18:48 | XMS REPORT | Continuity of Care Document ---
Author Author [facility] t Organization [facility] Address [address] [place] [address] Dr. Johnson [address] [place] [phone] Phone Unavailable Care Team Providers Care Scientific Diver Name Role Phone NO, PCP PCP Unavailable KALPESH BERNAL Attphymica Unavailable Problems Condition Name Condition Details Condition Category Status Onset Date Resolution Date Last Treatment Date Treating Clinician Comments Source Pulmonary embolism Problem Active [facility] Chest pain Problem Active [facility] Allergies, Adverse Reactions, Alerts This patient has no known allergies or adverse reactions. Social History Social Habit Start Date Stop Date Quantity Comments Source Sex Assigned At 1965 00:00:00 1965 00:00:00 Male [facility] Medications This patient has no known medications. Vital Signs Vital Name Observation Time Observation Value Comments Source Body Temperature 2019-12-15 15:25:00 99.5 [degF] [facility] Weight 2019-12-15 00:50:00 166 [lb_av] [facility] BMI (Body Mass Index) 2019-12-15 00:50:00 28.5 kg/m2 [facility] Procedures Procedure Date / Time Performed Performing Clinician [facility] e Computed tomography of chest with contrast 2019-12-13 00:00:00 [facility] Plan of Care Planned Activity Planned Date Details Comments Source Instructions Pulmonary Embolism [facility] Encounters Start Date/Time End Date/Time Encounter Type Admission Type [facility] Care Department Encounter ID Source 2019-12-13 10:04:00 2019-12-15 18:08:00 Discharged Inpatient 1 KALPESH BERNAL [facility] [id number] [facility] Results Test Description Test Time Test Comments Results Result Comments Source Serum or plasma szblc-5-dvsylfkbiij.tumor marker measu rement (mass/volume) 2019-12-14 08:30:00 Test Item Alpha Fetoprotein (test code = 92439-1) 3.5 0.0-8.3 [facility] Electrochemiluminescence Immunoassay(ECLIA)Values obtained wit h different assay methods or kits cannotbe used interchangeably. Results cannot be interpreted asabsolute evidence of the presence or absence of malignantdisea se.This test is not interpretable in females.Performed at: [facility] [address] [id number] Director: Lobito Santana MD, Phone: [phone] Saint Anthony's Hospitalerum or plasma carcinoembryonic antigen measurement (mass/volume)2019-12-14 08:30:00* Test Item Value Reference Range Interpretation Comments Carcinoembryonic Antigen (test code = 2039-6) 1.8 0.0-4.7 Nonsmokers <3.9 Smokers <5.6[facility] Electrochemiluminescence Immunoassay(ECLIA)Values obtained with different assay methods or kitscannot be used interchangeably. Results cannot beinterpreted as absolute evidence of the presence orabsence of malignant disease.[facility] Serum or plasma prostate specific antigen measurement (mass/volume)2019-12-14 08:30:00* Test Item Value Reference Range Interpretation Comments Prostate Specific Antigen (test code = 2857-1) 0.9 0.0-4.0 [facility] ECLIA methodology.According to the [place] [employer], Serum PSAshould decrease and remain at undetectable levels afterradical prostatectomy. The AUA defines biochemicalrecurrence as an initial PSA value 0.2 ng/mL or grea terfollowed by a subsequent confirmatory PSA value 0.2 ng/mLor greater. Values o btained with different assay methods orkits cannot be used interchangeably. Resu lts cannot beinterpreted as absolute evidence of the presence or absenceof malig nant disease.Performed at: [facility] [address] [id number] Director: Lobito Santana MD, Phone: [phone] [facility]o [facility] HospitalBlood leukocytes automated count (number/volume) 2019-12-14 05:30:00* Test Item Value Reference Range Interpretation Comments White Blood Count (test code = 6690-2) 10.02 4.8-10.8 [facility]Bl[facility] erythrocytes automated count (number/volume)2019-12-14 05:30:00* Test Item Value Reference Range Interpretation Comments Red Blood Count (test code = 789-8) 4.81 4.3-5.7 [facility]Blood hemoglobin measurement (moles/volume)2019-12-14 05:30:00* Test Item Value Reference Range Interpretation Comments Hemoglobin (test code = 71629-6) 14.0 14.0-18.0 [facility] HospitalAutomated blood hematocrit (volume fraction)2019-12-14 05:30:00* Test Item Value Reference Range Interpretation Comments Hematocrit (test code = 4544-3) 42.2 38.2-49.6 [facility] HospitalAutomated erythrocyte mean corpuscular xsxecx7155-70-93 05:30:00* Test Item Value Reference Range Interpretation Comments Mean Corpuscular Volume (test code = 787-2) 87.7 81-99 [facility] HospitalAutomated erythrocyte mean corpuscular hemoglobin (mass per erythrocyte)2019-12-14 05:30:00* Test Item Value Reference Range Interpretation Comments Mean Corpuscular Hemoglobin (test code = 785-6) 29.1 28-32 [facility] HospitalAutom[facility] erythrocyte mean corpuscular hemoglobin concentration measurement (mass/volume)2019-12-14 05:30:00* Test Item Value Reference Range Interpretation Comments Mean Corpuscular Hemoglobin Concent (test code = 786-4) 33.2 31-35 [facility] HospitalRDW CfuEs-Lhv8019-48-28 05:30:00* Test Item Value Reference Range Interpretation Comments Red Cell Distribution Width (test code = 30810-1) 14.3 11.7 -14.4 [facility] HospitalAutomated blood platelet count (count/volume)2019-12-14 05:30:00* Test Item Value Reference Range Interpretation Comments Platelet Count (test code = 777-3) 432 140-360 [facility] HospitalAutomated blood segmented neutrophil count as percentage of total xmtqwezcjf6633-72-66 05:30:00* Test Item Value Reference Range Interpretation Comments Neutrophils (%) (Auto) (test code = 81847-4) 58.3 38.7-80.0 [facility] HospitalAutomated blood lymphocyte count as percentage ot total vrlpdbyyyq5261-83-88 05:30:00* Test Item Value Reference Range Interpretation Comments Lymphocytes (%) (Auto) (test code = 736-9) 26.5 18.0-39.1 [facility] HospitalAutomated blood monocyte count as percentage of total esxyjjelmk1827-40-55 05:30:00* Test Item Value Reference Range Interpretation Comments Monocytes (%) (Auto) (test code = 5905-5) 11.9 4.4-11.3 [facility] HospitalAutomated blood eosinophil count as percentage of total dmiwowmamn5536-52-41 05:30:00* Test Item Value Reference Range Interpretation Comments Eosinophils (%) (Auto) (test code = 713-8) 1.3 0.0-6.0 [facility] HospitalAutomated blood basophil count as percentage of total dogkxcxzpx0026-95-72 05:30:00* Test Item Value Reference Range Interpretation Comments Basophils (%) (Auto) (test code = 706-2) 0.6 0.0-1.0 [facility] HospitalFluoroscopic procedure less than one hour bmhadwmf3837-67-09 05:30:00* Test Item Value Reference Range Interpretation Comments IM GRANULOCYTES % (test code = IM GRANULOCYTES %) 1.4 0.0- 1.0 [facility] HospitalAutomated blood neutrophil count 2019-12-14 05:30:00* Test Item Value Reference Range Interpretation Comments Neutrophils # (Auto) (test code = 751-8) 5.8 2.1-6.9 [facility] HospitalBlood lymphocytes count (number/volume) 2019-12-14 05:30:00* Test Item Value Reference Range Interpretation Comments Lymphocytes # (Auto) (test code = 53874-0) 2.7 1.0-3.2 [facility] HospitalBlood monocytes automated count (number/volume)2019-12-14 05:30:00* Test Item Value Reference Range Interpretation Comments Monocytes # (Auto) (test code = 742-7) 1.2 0.2-0.8 [facility] HospitalAutomated blood eosinophil count 2019-12-14 05:30:00* Test Item Value Reference Range Interpretation Comments Eosinophils # (Auto) (test code = 711-2) 0.1 0.0-0.4 [facility] HospitalAutomated blood basophil count (count/volume)2019-12-14 05:30:00* Test Item Value Reference Range Interpretation Comments Basophils # (Auto) (test code = 704-7) 0.1 0.0-0.1 [facility] HospitalFluoroscopic procedure less than one hour jjjngdvz7781-08-43 05:30:00* Test Item Value Reference Range Interpretation Comments Absolute Immature Granulocyte (auto (kathi t code = Absolute Immature Granulocyte (auto) 0.14 0-0.1 [facility] Hospitalerum or plasma sodium measurement (moles/volume)2019-12-14 05:30:00* Test Item Value Reference Range Interpretation Comments Sodium Level (test code = 2951-2) 139 136-145 [facility] Hospitalerum or plasma potassium measurement (moles/volume)2019-12-14 05:30:00* Test Item Value Reference Range Interpretation Comments Potassium Level (test code = 2823-3) 4.3 3.5-5.1 [facility] Hospitalerum or plasma chloride measurement (moles/volume)2019-12-14 05:30:00* Test Item Value Reference Range Interpretation Comments Chloride Level (test code = 2075-0) 104 98-107 [facility] Hospitalerum or plasma carbon dioxide, total measurement (moles/volume)2019-12-14 05:30:00* Test Item Value Reference Range Interpretation Comments Carbon Dioxide Level (test code = 2028-9) 24 22-29 [facility] Hospitalerum or plasma anion rxf0597-38-17 05:30:00* Test Item Value Reference Range Interpretation Comments Anion Gap (test code = 36313-5) 15.3 8-16 [facility] Hospitalerum or plasma urea nitrogen measurement (mass/volume)2019-12-14 05:30:00* Test Item Value Reference Range Interpretation Comments Blood Urea Nitrogen (test code = 3094-0) 10 7-26 [facility] Hospitalerum or plasma creatinine measurement (mass/volume)2019-12-14 05:30:00* Test Item Value Reference Range Interpretation Comments Creatinine (test code = 2160-0) 0.84 0.72-1.25 [facility] Hospitalerum or plasma urea nitrogen/creatinine mass xtkzq9908-36-64 05:30:00* Test Item Value Reference Range Interpretation Comments BUN/Creatinine Ratio (test code = 3097-3) 12 6-25 [facility] HospitalEstimated glomerular filtration rate (GFR) sugnfklyxpmnc9526-23-84 05:30:00* Test Item Value Reference Range Interpretation Comments Estimat Glomerular Filtration Rate (test code = 687944792) > 60 >60 Ranges were taken from the National Kidney Disease Education Program and the [facility] literature.Reference ranges:60 or greater: Vocrfp96-42 ( for 3 consecutive months): Chronic kidney disease 15 or less: Kidney failureEl Campo Memorial HospitalGlucose kkmgomvqito2924-96-43 05:30:00* Test Item Value Reference Range Interpretation Comments Glucose Level (test code = RJY9874) 123 74-118 [facility] Hospitalerum or plasma calcium measurement (mass/volume)2019-12-14 05:30:00* Test Item Value Reference Range Interpretation Comments Calcium Level (test code = 85783-6) 9.0 8.4-10.2 [facility] Hospitalerum or plasma total bilirubin measurement (mass/volume)2019-12-14 05:30:00* Test Item Value Reference Range Interpretation Comments Total Bilirubin (test code = 1975-2) 0.5 0.2-1.2 [facility] HospitalFluoroscopic procedure less than one hour yplgstih7286-53-50 05:30:00* Test Item Value Reference Range Interpretation Comments Aspartate Amino Transf (AST/SGOT) (test code = Aspartate Amino Transf (AST/SGOT)) 25 5-34 [facility] Hospitalerum or plasma alanine aminotransferase measurement (enzymatic activity/volume)2019-12-14 05:30:00* Test Item Value Reference Range Interpretation Comments Alanine Aminotransferase (ALT/SGPT) (test code = 1742-6) 60 0-55 [facility] Hospitalerum or plasma protein measurement (mass/volume)2019-12-14 05:30:00* Test Item Value Reference Range Interpretation Comments Total Protein (test code = 2885-2) 8.1 6.5-8.1 [facility] Hospitalerum or plasma albumin measurement (mass/volume)2019-12-14 05:30:00* Test Item Value Reference Range Interpretation Comments Albumin (test code = 1751-7) 3.0 3.5-5.0 [facility] HospitalPlasma globulin measurement (mass/volume) 2019-12-14 05:30:00* Test Item Value Reference Range Interpretation Comments Globulin (test code = 76837-6) 5.1 2.3-3.5 [facility] Hospitalerum or plasma albumin/globulin mass hkucf7847-98-01 05:30:00* Test Item Value Reference Range Interpretation Comments Albumin/Globulin Ratio (test code = 1759-0) 0.6 0.8-2.0 [facility] Hospitalerum or plasma alkaline phosphatase measurement (enzymatic activity/volume)2019-12-14 05:30:00* Test Item Value Reference Range Interpretation Comments Alkaline Phosphatase (test code = 6768-6) 100 40-150 [facility] Hospitalerum or plasma creatine kinase measurement (enzymatic activity/volume)2019-12-14 05:30:00* Test Item Value Reference Range Interpretation Comments Creatine Kinase (test code = 2157-6) 37 30-200 [facility] Hospitalerum or plasma creatine kinase MB measurement (mass/volume)2019-12-14 05:30:00* Test Item Value Reference Range Interpretation Comments Creatine Kinase MB (test code = 44876-3) 0.30 0-5.0 [facility] HospitalTroponin I measurement by highly sensitive enzyme uknksjkyttw3177-42-06 05:30:00* Test Item Value Reference Range Interpretation Comments Troponin I (test code = 60195-9) 0.011 0-0.300 [facility] HospitalBlood psxeece1386-23-15 12:35:00* Test Item Value Reference Range Interpretation Comments Blood Culture (test code = 18261991) NO GROWTH AFTER 48 HOURS [facility] HospitalCT CHEST [id number] 11:20:00 [facility] [address] [address] Patient Name: ALEKSANDR KUMAR MR #: [id number] : 1965 Age/Sex: 54/M Req #: [id number] Adm Physician: Ordered by: KALPESH BERNAL MD Report #: [id number] Location: [facility]/Bed: Procedure: [id number] CT/CT CHEST W Exam Date: 12/13/19 Exam Time: 1050 REPORT STATUS: Signed EXAM: CT Chest WITH con trast- Pulmonary Embolism Protocol INDICATION: Shortness of breath, chest p ain COMPARISON: None TECHNIQUE: Chest was scanned utilizing a multi detector helical scanner from the lung apex through the level of the diaphragm after administration of IV contrast. Thin section reconstructions were obtain ed with special concentration on the pulmonary arteries. Coronal and sagittal reformations were obtained. Pulmonary embolism protocol was performed. IV CONTRAST: 100 cc of Isovue 370 RADIATION DOSE: Total DLP: 410 mGy*cm Dose modulation, iterative reconstruction, and/or we ight based adjustment of the mA/kV was utilized to reduce the radiation dose t o as low as reasonably achievable. COMPLICATIONS: None F INDINGS: LINES/ TUBES: None. PULMONARY ARTERIES: Acute bilateral lobar pulmonary emboli involving lobar and segmental branches of all lobes of both lungs with partial extension into the left main pulmonary artery. The main pul monary artery measures up to 2.6 cm in diameter. No right heart strain. L UNGS AND AIRWAYS: The central airways are patent. Bilateral multifocal upper l caroline and peripherally predominant consolidative opacities. Bibasilar dependent subsegmental atelectasis. PLEURA: The pleural spaces are clear. HEART AND MEDIASTINUM: The thyroid gland is normal. No supraclavicular or axillary lymphadenopathy. Prominent mediastinal lymph nodes do not meet size criteria f or lymphadenopathy. The heart is not enlarged. No pericardial effusion. U PPER ABDOMEN: Diffuse hepatic steatosis. No acute findings in the upper abdome n. BONES: No acute osseous injury. No suspicious lytic or blastic lesions. SOFT TISSUES: Unremarkable. IMPRESSION: Acute bilateral lobar pulmo nary emboli involving lobar and segmental branches of all lobes of both lungs with partial extension into the left main pulmonary artery. No right heart str ain. Bilateral multifocal upper lung and peripherally predominant consolida tive opacities can be seen in the setting of multifocal pneumonia (including v iral etiologies) or alternatively pulmonary infarcts. Diffuse hepatic michelle atosis. The above findings were discussed with Dr. Bernal on 12/13/2019 1 1:20 AM, who responded indicating that the communication was understood. Signed by: Blane Dias MD on 12/13/2019 11:34 AM Dictated By: BLANE Caban MD 1134 Transcribed By: RAYMUNDO on 12/13/19 1134 COPY TO: KALPESH BERNAL MD Fluoroscopic procedure less than one hour uocdtfcm4241-98-24 10:15:00* Test Item Value Reference Range Interpretation Comments Coronavirus (PCR) (test code = Coronavirus (PCR)) NOT DETECTED NOTD ETECTED SARS-COV2/RT-PCRNegative results do not preclude SARS-CoV-2 infection and should not be used as the sole basis for patient management decisions. Negative result s must be combined with clinical observations, patient history, and epidemiologi ramon information. A false negative result may occur if a specimen is improperly c ollected, transported or handled.The limit of detection for this assay is 250 co pies/mLThe SARS-CoV-2 test is a rapid, real-time RT-PCR test intended for the qu alitative detection of nucleic acid from SARS-CoV-2 in nasopharyngeal swab speci men collected from individuals suspected of COVID-19 by their healthcare provide r. This test has not been Food and Drug Administration (FDA) cleared or approved and has been authorized by FDA under an Emergency Use Authorization (EUA). This EUA will be effective until the declaration that circumstances exist justifying the authorization of the emergency use of in vitro diagnostic test for detectio n and or diagnosis of COVID-19 is terminated under section 564(b) of the Act, or the the EUA is revoked under 564(g) of the ACT.Testing performed by [facility] [place] [id number] Campo Memorial HospitalProthrombin time (PT) in platelet poor plasma by coagulation mcsmh1862-55-55 09:50:00* Test Item Value Reference Range Interpretation Comments Prothrombin Time (test code = 5902-2) 13.2 11.9-14.5 [facility] HospitalINR in Platelet poor plasma by Coagulation vwckq6675-12-08 09:50:00* Test Item Value Reference Range Interpretation Comments Prothromb Time International Ratio (test code = 6301-6) 0.95 Oral Anticoagulant Therapy INR Values:1. Low Intensity Therapy 1.5 - 2.02 . Moderate Intensity Therapy 2.0 - 3.03. High Intensity Therapy(1) 2.5 - 3. 54. High Intensity Therapy(2) 3.0 - 4.05. Panic Value INR > 5.0 [facility]
== END 2019-12-15 18:08 | disposition home or self-care (01) | DRG 175 ==
LOC: ER 09:33 → ERHOLD 10:04 → ICU 14:44 → MED/SURG3 21:35
PROVIDERS: ADMIT Internal Medicine; ATTEND Internal Medicine
DX: I26.99 Other pulmonary embolism without acute cor pulmonale (principal); J12.9 Viral pneumonia, unspecified; R06.02 Shortness of breath; Z20.828 Contact with and (suspected) exposure to other viral communicable diseases; Z11.59 Encounter for screening for other viral diseases; I10 Essential (primary) hypertension; Z83.3 Family history of diabetes mellitus; Z82.49 Family history of ischemic heart disease and other diseases of the circulatory system
CPT/HCPCS: 36415; 71260; 80053; 82105; 82378; 82550; 82553; 84152; 84484; 85025; 85610; 86301; 87040; 93005; 93306; 93970; 99284; J0456; J0696; J1650; J7030; Q9967; U0002